=== PATIENT | female | born 1960 | race Caucasian/White ===

== ENCOUNTER 2024-08-05 01:32 | Day surgery (SDC) | payer OTHER, SELFPAY ==
[2024-08-04 13:51] VITALS: BMI 24.5
[2024-08-05 07:25] VITALS: BP 108/84; PULSE 64; RESP 20; TEMP 36.2; O2SAT 98
[2024-08-05 07:52] LABS: Glucose Point of Care 101 mg/dl (65-105)
[2024-08-05] MEDS: LACTATED RINGERS 1,000 ML 150 ML IV CONT (07:55)
--- NOTE | 2024-08-05 08:39 | WPDANESEPPF ---
Anes - Initial Pre Proc Eval Procedure: Operation Date: 08/05/24 09:00 Proposed Procedures p Esophagogastroduodenoscopy & Colonoscopy - Chad Sampson MD Date/Time: 08/05/24 08:39 Surgeon: Chad Sampson MD Pre Op Diagnosis: GERD,Pers.Hx. of colon CA Patient Data Age: 64 Gender: F Height: 1.6 m Weight: 62.4 kg Last Vital Signs Temp 36.2 C L 08/05/24 07:25 Pulse 64 08/05/24 07:25 Resp 20 08/05/24 07:25 BP 108/84 08/05/24 07:25 Pulse Ox 98 08/05/24 07:25 O2 Del Method Room Air 08/05/24 07:25 Allergies Allergy/AdvReac Type Severity Reaction Status Date / Time No Known Allergies Allergy Verified 08/05/24 07:23 Home Medications ?Medication ?Instructions ?Recorded ?Confirmed ?Type albuterol sulfate 90 mcg/actuation 2 inh inhalation Q4H PRN shortness 08/04/24 08/05/24 History aerosol inhaler of breath or wheezing atorvastatin 20 mg tablet 20 mg PO DAILY 08/04/24 08/05/24 History chlorthalidone 25 mg tablet 25 mg PO DAILY 08/04/24 08/05/24 History ibuprofen 600 mg tablet (IBU) 600 mg PO BID PRN pain 08/04/24 08/05/24 History lisinopril 5 mg tablet 5 mg PO DAILY 08/04/24 08/05/24 History metformin 500 mg tablet 500 mg PO BID 08/04/24 08/05/24 History sertraline 100 mg tablet 100 mg PO HS 08/04/24 08/05/24 History tiotropium bromide 18 mcg capsule 1 cap inhalation DAILY 08/04/24 08/05/24 History with inhalation device Laboratory Tests 08/05/24 07:31 POC Capillary Glucose 101 mg/dl (65-105) Patient hx anesthesia problems: none Family hx anesthesia problems: none Results Review: All pre-operative results and documents have been reviewed as part of the pre-operative evaluation. [facility] Social History Social History Living arrangements: incarcerated Anes - Eval Final PreProcedure Day of Procedure 08/05/24 08:39 Patient weight: normal Heart: regular rate and rhythm Lungs: decreased breath sounds Airway: Mallampati scale class II Neurological: alert and oriented Last oral intake: >/= 8 hours ASA classification: III Emergent: no Anesthetic plan: proceed Anesthesia type and monitoring: general GIVS and standard monitoring Results Review: All pre-operative results and documents have been reviewed as part of the pre-operative evaluation. Informed Consent: The patient's anesthetic plan and its attendant risks and benefits were discussed with the patient/family/POA. Questions were solicited and answers provided to the satisfaction of the patient/family/POA.
--- NOTE | 2024-08-05 09:01 | PM.HPGS ---
History of Present Illness History of Present Illness Consent: Risks, benefits, and alternatives have been discussed and questions answered. Patient agrees to proceed with procedure. Chief complaint: GERD,Pers.Hx. of colon CA Narrative: Emy Rockwell is a 64 year old female with mild gerd, also had colon cancer 3 years ago that required surgery, last colonoscopy about 2 years ago Review of Systems Review of Systems: All systems reviewed & are unremarkable except as noted in HPI and below PMFSH Past Medical History Medical History (Updated 08/05/24 @ 09:03 by Chad Sampson MD) History of colon cancer GERD (gastroesophageal reflux disease) Social History Social History Living arrangements: incarcerated Meds Home Medications and Allergies Home Medications ?Medication ?Instructions ?Recorded ?Confirmed ?Type albuterol sulfate 90 mcg/actuation 2 inh inhalation Q4H PRN shortness 08/04/24 08/05/24 History aerosol inhaler of breath or wheezing atorvastatin 20 mg tablet 20 mg PO DAILY 08/04/24 08/05/24 History chlorthalidone 25 mg tablet 25 mg PO DAILY 08/04/24 08/05/24 History ibuprofen 600 mg tablet (IBU) 600 mg PO BID PRN pain 08/04/24 08/05/24 History lisinopril 5 mg tablet 5 mg PO DAILY 08/04/24 08/05/24 History metformin 500 mg tablet 500 mg PO BID 08/04/24 08/05/24 History sertraline 100 mg tablet 100 mg PO HS 08/04/24 08/05/24 History tiotropium bromide 18 mcg capsule 1 cap inhalation DAILY 08/04/24 08/05/24 History with inhalation device Allergies Allergy/AdvReac Type Severity Reaction Status Date / Time No Known Allergies Allergy Verified 08/05/24 07:23 Vital Signs Vital Signs - 24 hr 08/05/24 07:25 Temperature 97.1 F L Pulse Rate 64 Respiratory Rate 20 Blood Pressure 108/84 Pulse Oximetry 98 Oxygen Delivery Room Air Exam Const: General: comfortable and no acute distress HENMT: Face/Nose/Sinus: Normal nares present Eyes: General: appearance normal, both eyes and all related structures Neck: Neck: no JVD Resp: Auscultation: clear to auscultation bilaterally Cardio: Rate: regular rate Rhythm: regular rhythm GI: Inspection: non-distended GI Palp: Yes Soft to palpation Skin: General skin exam: normal color Neuro: General: gait normal Speech: normal speech Extrem: General: normal to inspection Psych: Mental Status: mental status grossly normal Assessment and Plan Assessment and plan (1) History of colon cancer: Code(s): Z85.038 - Personal history of other malignant neoplasm of large intestine Status: Acute Assessment and Plan: colonoscopy (2) GERD (gastroesophageal reflux disease): Code(s): K21.9 - Gastro-esophageal reflux disease without esophagitis Status: Acute Assessment and Plan: egd
[2024-08-05] MEDS: BENZOCAINE (*SP) 60 ML SPRAY CAN (HURRICAINE) 1 SPRAY MUCOUS MEM (09:07)
[2024-08-05 09:30] VITALS: BP 113/61; PULSE 54; RESP 19; O2SAT 98
[2024-08-05 09:35] VITALS: BP 86/51; PULSE 56; RESP 20; O2SAT 99
[2024-08-05 09:40] VITALS: BP 98/51; PULSE 60; RESP 19; O2SAT 98
[2024-08-05 09:50] VITALS: BP 98/61; PULSE 60; RESP 20; O2SAT 99
[2024-08-05 10:00] VITALS: BP 106/57; PULSE 56; RESP 20; O2SAT 99
== END 2024-08-05 10:11 | disposition home or self-care (01) ==
PROVIDERS: Visit Provider Internal Medicine Gastroenterology
PROC: 0DJ08ZZ Inspection of Upper Intestinal Tract, Via Natural or Artificial Opening Endoscopic (ICD-10-PCS; CPT 43235; principal; 2024-08-05 09:00)
DX: Z08 Encounter for follow-up examination after completed treatment for malignant neoplasm (principal); K63.5 Polyp of colon; K64.8 Other hemorrhoids; Z85.038 Personal history of other malignant neoplasm of large intestine; Z98.0 Intestinal bypass and anastomosis status; Z90.49 Acquired absence of other specified parts of digestive tract; K21.9 Gastro-esophageal reflux disease without esophagitis; K29.50 Unspecified chronic gastritis without bleeding
CPT/HCPCS: 45385; 43239; 82948; 88305; J2003; J2371; J2704; J7120